=== PATIENT | female | born 1955 | race Caucasian/White ===

== ENCOUNTER → 2020-02-05 10:14 | Outpatient (CLI) | payer BC, SELFPAY ==
--- NOTE | ~2020-02-05 | MM_ITS ---
EXAMINATION: MM screening sanjana BI w toño HISTORY: Screening mammogram TECHNIQUE: Craniocaudal and mediolateral oblique 3-D tomosynthesis images were obtained and synthetic 2-D images were generated. CAD analysis was submitted and interpreted. COMPARISON: 10/24/2018, 09/18/2017, 08/22/2016 bilateral digital screening mammogram examinations BREAST PARENCHYMAL COMPOSITION: The breasts are heterogeneously dense, which may obscure small masses . FINDINGS: There is no evidence of suspicious mass, calcification, or architectural distortion to sugg est malignancy in either breast. There has been no suspicious interval change. IMPRESSION: 1. No mammographic evidence of malignancy. 2. Recommend routine screening mammography in one year. BI-RADS Category 1: Negative Reviewed, dictated and finalized at location A.
== END ==
PROVIDERS: Visit Provider Student in an Organized Health Care Education/Training Program
DX: Z12.31 Encounter for screening mammogram for malignant neoplasm of breast (principal)
CPT/HCPCS: 77063; 77067

== ENCOUNTER → 2021-05-18 12:31 | Outpatient (CLI) | payer BC, SELFPAY ==
--- NOTE | ~2021-05-18 | DEXA_ITS ---
Bone Density Report Name: MEENAKSHI QUEVEDO Age: 66 Sex: Female Ethnicity: White Date of : 1955 Indication: osteopenia; height loss; postmenopausal Referring Provider: Letty Ugalde Study: Bone densitometry was performed. Exam Date: May 18, 2021 Accession number: [id number] Bone Density: Region BMD T-score Z-score Classification AP Spine (L1, L2, L4) 0.932 -0.9 0.9 Normal Femoral Neck (Left) 0.664 -1.7 -0.1 Osteopenia Total Hip (Left) 0.818 -1.0 0.2 Normal Femoral Neck (Right) 0.705 -1.3 0.2 Osteopenia Total Hip (Right) 0.840 -0.8 0.4 Normal Total Hip Mean 0.829 -0.9 0.3 Normal World Health Organization criteria for BMD impression classify patients as: Normal (T-score at or above -1.0), Osteopenia (T-score between -1.0 and -2.5), or Osteoporosis (T-score at or below -2.5). 10-year Fracture Risk(1): Major Osteoporotic Fracture 9.1% Hip Fracture 1.0% Reported Risk Factors: [place] (), Neck BMD=0.664, BMI=28.9 (1) FRAX(R) Version 3.08. Fracture probability calculated for an untreated patient. Fracture probability may be lower if the patient has received treatment. Previous Exams: Region Exam Age BMD T-score BMD Change BMD Change Date g/cm2 vs Baseline vs Previous AP Spine(L1, L2, L4) 05/18/2021 66 0.932 -0.9 -0.111* 0.035* 10/24/2018 63 0.898 -1.2 -0.146* -0.004 08/10/2014 59 0.901 -1.2 -0.142* -0.009 07/18/2012 57 0.910 -1.1 -0.133* -0.035* 05/30/2010 55 0.945 -0.8 -0.099* -0.099* 05/18/2008 53 1.044 0.1 Total Hip(Left) 05/18/2021 66 0.818 -1.0 -0.099* 0.033* 10/24/2018 63 0.785 -1.3 -0.132* -0.077* 08/10/2014 59 0.862 -0.7 -0.055* 0.053* 07/18/2012 57 0.809 -1.1 -0.108* -0.041* 05/30/2010 55 0.850 -0.8 -0.067* -0.067* 05/18/2008 53 0.917 -0.2 Total Hip(Right) 05/18/2021 66 0.840 -0.8 -0.040* 0.044* 10/24/2018 63 0.796 -1.2 -0.084* -0.037* 08/10/2014 59 0.833 -0.9 -0.047* 0.032* 07/18/2012 57 0.802 -1.2 -0.078* -0.010 05/30/2010 55 0.812 -1.1 -0.068* -0.068* 05/18/2008 53 0.880 -0.5 *Denotes significance at 95% confidence level, LSC for AP Spine = 0.022 g/cm2, LSC for Total Hip = 0.027 g/cm2 Clinical Information Provided by Patient: Has
--- NOTE | ~2021-05-18 | MM_ITS ---
EXAMINATION: MM screening sanjana BI w toño HISTORY: Screening mammogram TECHNIQUE: Craniocaudal and mediolateral oblique 3-D tomosynthesis images were obtained and synthetic 2-D images were generated. CAD analysis was submitted and interpreted. COMPARISON: 02/05/2020, 11/03/2018, 09/18/2017 bilateral screening mammogram examinations BREAST PARENCHYMAL COMPOSITION: The breasts are heterogeneously dense, which may obscure small masses . FINDINGS: There is no evidence of suspicious mass, calcification, or architectural distortion to sugg est malignancy in either breast. There has been no suspicious interval change. IMPRESSION: 1. No mammographic evidence of malignancy. 2. Recommend routine screening mammography in one year. BI-RADS Category 1: Negative Reviewed, dictated and finalized at location A. WIGS HACKLER
== END ==
PROVIDERS: PCP Family Medicine Adolescent Medicine; Visit Provider Student in an Organized Health Care Education/Training Program
DX: Z12.31 Encounter for screening mammogram for malignant neoplasm of breast (principal); Z78.0 Asymptomatic menopausal state; M85.851 Other specified disorders of bone density and structure, right thigh; M85.852 Other specified disorders of bone density and structure, left thigh
CPT/HCPCS: 77063; 77067; 77080

== ENCOUNTER → 2022-09-07 06:59 | Outpatient (CLI) | payer MEDICARE, BC, SELFPAY ==
--- NOTE | ~2022-09-07 | MM_ITS ---
EXAMINATION: MM screening sanjana BI w toño HISTORY: Screening TECHNIQUE: Craniocaudal and mediolateral oblique 3-D tomosynthesis images were obtained and synthetic 2-D images were generated. CAD analysis was submitted and interpreted. COMPARISON: Comparison to multiple prior studies sequentially, with oldest reviewed study dated 08/12. BREAST PARENCHYMAL COMPOSITION: Breast composed of scattered areas of fibroglandular density FINDINGS: There is no evidence of suspicious mass, calcification, or architectural distortion to sugg est malignancy in either breast. There has been no suspicious interval change. IMPRESSION: 1. No mammographic evidence of malignancy. 2. Recommend routine screening mammography in one year. BI-RADS Category 1: Negative Reviewed, dictated and finalized at location A.
== END ==
PROVIDERS: PCP Family Medicine Adolescent Medicine; Visit Provider Family Medicine Adolescent Medicine
DX: Z12.31 Encounter for screening mammogram for malignant neoplasm of breast (principal)
CPT/HCPCS: 77063; 77067

== ENCOUNTER 2023-11-08 10:15 | Outpatient (CLI) | payer MEDICARE, BC, SELFPAY ==
--- NOTE | ~2023-11-08 | DEXA_ITS ---
Bone Density Report Name: MEENAKSHI QUEVEDO Age: 68 Sex: Female Ethnicity: White Date of : 1955 Indication: postmenopausal; screening for osteoporosis; height loss; Referring Provider: DAMARIS LUONG Study: Bone densitometry was performed. Exam Date: November 08, 2023 Accession number: [id number] Bone Density: Region BMD T-score Z-score Classification AP Spine (L1, L2, L4) 0.925 -1.0 0.9 Normal Femoral Neck (Left) 0.667 -1.6 0.0 Osteopenia Total Hip (Left) 0.834 -0.9 0.5 Normal Femoral Neck (Right) 0.673 -1.6 0.1 Osteopenia Total Hip (Right) 0.817 -1.0 0.4 Normal Total Hip Mean 0.826 -1.0 0.5 Normal World Health Organization criteria for BMD impression classify patients as: Normal (T-score at or above -1.0), Osteopenia (T-score between -1.0 and -2.5), or Osteoporosis (T-score at or below -2.5). 10-year Fracture Risk(1): Major Osteoporotic Fracture 9.6% Hip Fracture 1.3% Reported Risk Factors: [place] (), Neck BMD=0.667, BMI=29.3 (1) FRAX(R) Version 3.08. Fracture probability calculated for an untreated patient. Fracture probability may be lower if the patient has received treatment. Previous Exams: Region Exam Age BMD T-score BMD Change BMD Change Date g/cm2 vs Baseline vs Previous AP Spine(L1, L2, L4) 11/08/2023 68 0.925 -1.0 -0.118* -0.007 05/18/2021 66 0.932 -0.9 -0.111* 0.035* 10/24/2018 63 0.898 -1.2 -0.146* -0.004 08/10/2014 59 0.901 -1.2 -0.142* -0.009 07/18/2012 57 0.910 -1.1 -0.133* -0.035* 05/30/2010 55 0.945 -0.8 -0.099* -0.099* 05/18/2008 53 1.044 0.1 Total Hip(Left) 11/08/2023 68 0.834 -0.9 -0.084* 0.016 05/18/2021 66 0.818 -1.0 -0.099* 0.033* 10/24/2018 63 0.785 -1.3 -0.132* -0.077* 08/10/2014 59 0.862 -0.7 -0.055* 0.053* 07/18/2012 57 0.809 -1.1 -0.108* -0.041* 05/30/2010 55 0.850 -0.8 -0.067* -0.067* 05/18/2008 53 0.917 -0.2 Total Hip(Right) 11/08/2023 68 0.817 -1.0 -0.063* -0.023 05/18/2021 66 0.840 -0.8 -0.040* 0.044* 10/24/2018 63 0.796 -1.2 -0.084* -0.037* 08/10/2014 59 0.833 -0.9 -0.047* 0.032* 07/18/2012 57 0.802 -1.2 -0.078* -0.010 05/30/2010 55 0.812 -1.1 -0.068* -0.068* 05/18/2008 53 0.880 -0.5 *Denotes significance at 95% confidence level, LSC for AP Spine = 0.022 g/cm2, LSC for Total Hip = 0
--- NOTE | ~2023-11-08 | MM_ITS ---
EXAMINATION: MM screening sanjana BI w toño HISTORY: Screening TECHNIQUE: Craniocaudal and mediolateral oblique 3-D tomosynthesis images were obtained and synthetic 2-D images were generated. CAD analysis was submitted and interpreted. COMPARISON: Comparison to multiple prior studies sequentially, with oldest reviewed study dated 12/2016. BREAST PARENCHYMAL COMPOSITION: The breasts are heterogeneously dense, which may obscure small masses . FINDINGS: There is no evidence of suspicious mass, calcification, or architectural distortion to sugg est malignancy in either breast. There has been no suspicious interval change. IMPRESSION: 1. No mammographic evidence of malignancy. 2. Recommend routine screening mammography in one year. BI-RADS Category 1: Negative Reviewed, dictated and finalized at location A.
== END 2023-11-08 10:16 ==
LOC: MICIMG 10:18
PROVIDERS: PCP Obstetrics & Gynecology; Visit Provider Obstetrics & Gynecology
DX: Z12.31 Encounter for screening mammogram for malignant neoplasm of breast (principal); M85.89 Other specified disorders of bone density and structure, multiple sites; Z78.0 Asymptomatic menopausal state; Z13.820 Encounter for screening for osteoporosis
CPT/HCPCS: 77063; 77067; 77080

== ENCOUNTER 2025-03-06 10:42 | Outpatient (CLI) | payer MEDICARE, BC, SELFPAY ==
--- NOTE | ~2025-03-06 | MM_ITS ---
EXAMINATION: MM screening sanjana BI w toño HISTORY: Screening TECHNIQUE: Craniocaudal and mediolateral oblique 3-D tomosynthesis images were obtained and synthetic 2-D images were generated. CAD analysis was submitted and interpreted. COMPARISON: Comparison to multiple prior studies sequentially, with oldest reviewed study dated , 10/24/2018 BREAST PARENCHYMAL COMPOSITION: The breasts are heterogeneously dense, which may obscure small masses. FINDINGS: There is no evidence of suspicious mass, calcification, or architectural distortion to suggest malignancy in either breast. IMPRESSION: 1. No mammographic evidence of malignancy. 2. Recommend routine screening mammography in one year. BI-RADS Category 1: Negative Reviewed, dictated and finalized at location B.
--- OUTSIDE RECORDS SUMMARY | 2025-03-06 10:48 | XMS_ITS | Clinical Summary ---
Author Organization [facility] Address [address], [facility] [address] [place] [address] Phone Care Team Providers Care District Fire Chief Name Role Phone Miko Aguirre MD Primary Care Provider + Chintanhollylars Nolan Gia DO Unavailable [phone] Allergies Active Allergy Reactions Criticality Noted Date Comments Penicillins Unknown 07/21/2016 Medications polyethylene glycol (MIRALAX) Powder Mix the entire bottle with 64 oz of a clear liquid. Use as directed by the office for colonoscopy prep. 255 g 0 6 Active YUVAFEM 10 MCG Tablet 1 Tab by Vaginal route every 14 days. 2 7 Active GARLIC PO Take 1,000 mg by mouth daily. Active Turmeric Curcumin 500 MG Capsule Take 1 Cap by mouth daily. Active Multiple Vitamins-Minera ls (CENTRUM SILVER PO) Take 1 Tab by mouth daily. Active Calcium Carb-Cholecalci ferol (CALCIUM + D3) 600-200 MG-UNIT Tablet Take 1 Tab by mouth daily. Active Family History Medical History Relation Name Comments Heart Disease Father High Cholesterol Mother Alcohol Abuse Other Aunt Breast Cancer Other Aunt Relation Name Status Comments Father Mother Other Social History Tobacco Use Types Packs/Day Years Used Date Smoking Tobacco: Never Smokeless Tobacco: Never Alcohol Use Standard Drinks/Week Comments Yes 0 (1 standard drink = 0.6 oz pur e alcohol) Occasional Comments Unknown Sex and Gender Information Value Date Recorded Sex Assigned at Not on file Legal Sex Female 10:33 AM CDT Gender Identity Not on file Sexual Orientation Not on file Plan of Treatment Health Maintenance Due Date Last Done Comments Hepatitis C Virus (HCV) Screening 1955 TdaP Immunization 1955 Cologuard 01/12/2001 Immunochemical Fecal Occult Blood 01/12/2001 Pneumococcal Immunization (5 0+ years) (1 of 1 - PCV) 01/12/2006 Zoster Immunization (1 of 2) 01/12/2006 SARS-COV-2 Immunization (1 - ) 02/17/2024 Influenza Immunization (#1) 2025 Colonoscopy 07/20/2026 07/20/2016 Colorectal Cancer Screening 07/20/2026 Respiratory Syncytial Virus (RSV) Immunization (Adult) (1 - 1-dose 75+ series) 01/12/2031 Hepatitis B Immunization Aged Out No longer eligible based on patient's age to complete this topic Human Papillomavirus (HPV) Immunization Aged Out No longer eligible b ased on patient's age to complete this topic Meningococcal Immunization (ACWY) Aged Out No longer eligible based on patient's age to complete this topic Rotavirus Immunization Aged Out No lo nger eligible based on patient's age to complete this topic Procedures Procedure Name Priority Date/Time Associated Diagnosis Comments COLONOSCOPY Routine 07/20/2016 from Last 3 Months or Most Recently Relevant to Health Maintenance Results * COLONOSCOPY (07/20/2016) Nolan Brush DO PROCEDURE/MINOR SURGICAL ORDERA BLES Final Result from Last 3 Months or Most Recently Relevant to Health Maintenance Insurance [facility] Care Teams District Fire Chief Relationship Specialty Start Date End Date Miko Aguirre MD PCP - General Family Medicine 07/21/16 Nolan Brush DO Gastroenterology 07/21/16
--- OUTSIDE RECORDS SUMMARY | 2025-03-06 10:48 | XMS_ITS | Clinical Summary ---
[facility] Organization [facility] Address [address] [place] [address] Care Team Providers Care Trade Show Specialist Name Role Phone Miko Aguirre MD Primary Care Prov ider Allergies Active Allergy Reactions Criticality Noted Date Comments Penicillins Unknown 07/21/2016 Medications estradiol (VAGIFEM) 10 mcg tablet I 1 T VAGINALLY 2 TIMES Q WK 2 9 Active turmeric-turmer ic root extract 450-50 mg capsule Take 1 capsule by mouth daily Active atorvastatin (LIPITOR) 20 mg tablet 2 Active Active Problems Problem Noted Date Diagnosed Date Peptic ulcer 02/01/2023 Trochanteric bursitis of left hip 02/01/2023 Cardiac disease 09/23/2015 Surgical History Surgery Date Site/Laterality Comments KNEE SURGERY Medical History Medical History Date Comments Peptic ulceration Kidney stone Migraines Osteoarthritis Family History Medical History Relation Name Comments Stroke Mother Family history of cerebrovascular accident (CVA) - (Added by TW Conv) Relation Name Status Comments Mother Social History Tobacco Use Types Packs/Day Years Used Date Smoking Tobacco: Never Smokeless Tobacco: Never Tobacco Cessation:Counseling Given: Not Answered Personal Safety Answer Date Recorded Getting School Help Needed Not on file 06/07 Comments Unknown Sex and Gender Information Value Date Recorded Sex Assigned at Not on file Legal Sex Female 11:44 AM MANAGER PRIMARY Gender Identity Not on file Sexual Orientation Not on file Obstetrics History Last Filed Vital Signs Vital Sign Reading Time Taken Comments Blood Pressure 130/80 10/02/2023 8:20 AM CDT Pulse 57 10/02/2023 8:20 AM CDT Temperature - - Respiratory Rate - - Oxygen Saturation 97% 12/23/2015 11:05 AM CDT Inhaled Oxygen Concentration - - Weight 74.8 kg (165 lb) 10/02/2023 8:20 AM CDT Height 162.6 cm (5' 4.02) 10/02/2023 8:20 AM CD T Body Mass Index 28.3 10/02/2023 8:20 AM CDT Plan of Treatment Health Maintenance Due Date Last Done Comments Breast Cancer Screening-Mammogram 1955 Colon Cancer Screening-Colonoscopy 1955 Depression Screening 1955 Fall Risk Assessment 1955 Hepatitis C Screening 1955 Osteoporosis Screening-Bone Density Scan 1955 DTaP/Tdap/Td Vaccine (1 - Tdap) 01/12/1967 Pneumococcal vaccine 65+ (1 of 1 - PCV) 01/12/2006 Zoster Vaccine (2 of 3) 06/16/2013 04/21/2013 Well Visit 65+ 01/12/2021 Influenza Vaccine (#1) 2025 02/10/2016, 2015 Hepatitis B Screening Completed 11/14/2014 , 06/19/2014, 05/18/2014, Additional history exists Insurance [facility] MEDICARE MEDICARE [facility] Care Teams Trade Show Specialist Relationship Specialty Start Date End Date Miko Aguirre MD PCP - General Family Medicine 03/04/19
== END 2025-03-06 10:43 | disposition home or self-care (01) ==
LOC: ANHFOHIMG 10:45
PROVIDERS: PCP Family Medicine Adolescent Medicine; Visit Provider Obstetrics & Gynecology
DX: Z12.31 Encounter for screening mammogram for malignant neoplasm of breast (principal)
CPT/HCPCS: 77063; 77067